=== PATIENT | male | born 1960 | race Two or more races ===

== ENCOUNTER 2019-12-18 15:28 | Inpatient (IN) | payer OTHER ==
[~2019-12-18] VITALS: Ht 167.6 cm; Wt 98.5 kg
[~2019-12-18 15:28] MED LIST: CODE BLUE RESPONSE XX ONE; ETOMIDATE 20 MG/10 ML IV ONE; SUCCINYLCHOLINE 20 MG/ML, 10ML IVPush ONE
--- NOTE | 2019-12-18 15:28 | NUR ---
[facility]IL[facility]-Pt found down on job site in the dirt. AED applied and shocked pt once, on EMS arrival pt in v.fib. Pt shocked again and achieved ROSC with v.tach and pulses. Pt arrived to ED, Dr. Wallace at bedside. Pt with sinus tach on monitor with STEMI on EKG. Pt pale, non responsive, LMA in place on arrival placed by EMS.
[2019-12-18] MEDS ORDERED: ASPIRIN 600 MG SUPP PR STA (15:30)
--- NOTE | 2019-12-18 15:30 | NUR ---
[employer] called on [facility] pre-alert at 1521 Code Cardiac called at 1528 and microbiology lab manager team called in by "code phone/strap machine operator automatic" Cardiology paged at 1529 All research lab assistant members in route per "code phone/strap machine operator automatic" at 1530.
--- NOTE | 2019-12-18 15:36 | NUR ---
Dr. Trujillo in ED seeing patient and Dr. Dorsey aware and coming in
[2019-12-18 15:42] LABS: MEAN CORPUSCULAR HEMOGLOBIN 29.9 pg (27.5-34.5); MEAN CORPUSCULAR HGB CONC 32.2 g/dL (33.2-36.2); MEAN CORPUSCULAR VOLUME 92.8 fL (81-97); MEAN PLATELET VOLUME 8.1 fL (7.4-10.4); PLATELET COUNT 254 x10^3/uL (130-400); RED BLOOD COUNT 4.89 x10^6/uL (4.38-5.82); RED CELL DISTRIBUTION WIDTH 13.3 % (9.4-14.8)
[2019-12-18 15:55] LABS: TROPONIN I 0.457 ng/mL (0.000-0.045)
--- NOTE | 2019-12-18 15:55 | NUR ---
Dr. Dorsey at bedside to evaluate pt.
[2019-12-18 15:56] LABS: INTERNATIONAL NORMALIZED RATIO 1.01 (0.93-1.1); PROTHROMBIN TIME 10.7 Seconds (9.6-11.5)
[2019-12-18] MEDS ORDERED: TICAGRELOR 90 MG TABLET ONE (15:59)
[2019-12-18] MEDS ORDERED: HEPARIN 1,000 UNITS/ML, 10ML ONE (15:59)
[2019-12-18] MEDS ORDERED: MIDAZOLAM 1 MG/ML, 5ML ONE (15:59)
[2019-12-18] MEDS ORDERED: FENTANYL PF 100 MCG/2ML ONE (15:59)
[2019-12-18] MEDS ORDERED: LIDOCAINE 2%, 20ML ONE (15:59)
[2019-12-18] MEDS ORDERED: BIVALIRUDIN 250 MG ONE ×2 (15:59→17:22)
[2019-12-18] MEDS ORDERED: VERAPAMIL 2.5 MG/ML, 2ML ONE (15:59)
[2019-12-18] MEDS ORDERED: PLEASE ENTER ALLERGIES MC SCH (16:00)
[2019-12-18] MEDS ORDERED: SODIUM CHLORIDE 0.9% 1,000 ML IV ONE (16:00)
[2019-12-18] MEDS ORDERED: PLEASE ENTER HEIGHT AND WEIGHT MC SCH (16:00)
[2019-12-18] MEDS ORDERED: SUCCINYLCHOLINE 20 MG/ML, 10ML IVPush ONE (16:00)
[2019-12-18] MEDS ORDERED: ETOMIDATE 20 MG/10 ML IVPush ONE (16:00)
--- NOTE | 2019-12-18 16:13 | NUR ---
Pt to lab support tech.
[2019-12-18 16:15] LABS: MD YES
[2019-12-18] MEDS ORDERED: PROPOFOL 100 ML IV ONE (16:20)
[2019-12-18] MEDS ORDERED: NOREPINEPHRINE 8 MG in SODIUM CHLORIDE 0.9% 242 ML IV PRN (16:24)
[2019-12-18] MEDS ORDERED: TIROFIBAN-0.9% SODIUM CHLORIDE 100 ML IV ONE (16:28)
[2019-12-18] MEDS ORDERED: PHARMACY MAY ADJ FOR RENAL FX MC SCH (16:30)
[2019-12-18] MEDS ORDERED: LIDOCAINE-MPF 1%, 2ML ENDO PRN (16:30)
[2019-12-18] MEDS ORDERED: SENNA/DOCUSATE TABLET NG PRN (16:30)
[2019-12-18] MEDS ORDERED: SENNA 176 MG/5 ML ORAL SOL NG PRN (16:30)
[2019-12-18] MEDS ORDERED: GLUCAGON 1 MG IM PRN (16:30)
[2019-12-18] MEDS ORDERED: LACTULOSE 20 GM/30 ML UDC NG PRN (16:30)
[2019-12-18] MEDS ORDERED: BISACODYL 10 MG SUPP PR PRN (16:30)
[2019-12-18] MEDS ORDERED: DEXTROSE 50%, 50ML SYRINGE IVPush PRN (16:30)
[2019-12-18 16:31] LABS: BAND#(MANUAL) 0.22 x10^3/uL; BANDS%(MANUAL) 1 % (0-7); EOS#(MANUAL) 0.22 x10^3/uL (0.0-0.4); EOS% (MANUAL) 1 % (1-7); LYMPH#(MANUAL) 4.82 x10^3/uL (1-3.4); LYMPHS% (MANUAL) 22 % (22-44); MONOS#(MANUAL) 1.97 x10^3/uL (0.3-2.7); MONOS% (MANUAL) 9 % (2-9); REACTIVE LYMPHS # (MANUAL) 0.44 x10^3/uL (0-0); REACTIVE LYMPHS % (MANUAL) 2 % (0-0); SEG#(MANUAL) 14.24 x10^3/uL (1.8-6.8); SEGS% (MANUAL) 65 % (42-75)
[2019-12-18] MEDS ORDERED: TIROFIBAN HCL MONOHYDRATE 15 ML ONE (16:32)
[2019-12-18 16:33] LABS: <PLATELET ESTIMATE> ADEQUATE; <RBC MORPHOLOGY> NORMAL
[2019-12-18 16:34] LABS: <PLT MORPHOLOGY> NORMAL PLT MORPH
--- NOTE | 2019-12-18 16:40 | NUR ---
THIS TECH DID EKG AND ASSISTED WITH PREP AND TRANSPORT TO SALES OPERATIONS DIRECTOR
[2019-12-18] MEDS ORDERED: BIVALIRUDIN 250 MG in SODIUM CHLORIDE 0.9% 50 ML IV SCH (17:25)
[2019-12-18] MEDS ORDERED: TIROFIBAN HCL MONOHYDRATE 15 ML IV ONE (17:25)
[2019-12-18] MEDS ORDERED: HEPARIN PROTOCOL IIB/IIIA POST-LYTIC MC PRN (18:00)
[2019-12-18 18:08] LABS: MICROSCOPIC INDICATED
[2019-12-18] MEDS ORDERED: HEPARIN 5,000 UNITS/ML, 1ML IV PRN (18:30)
[2019-12-18] MEDS ORDERED: HEPARIN 5,000 UNITS/ML, 1ML IV ONE (18:30)
[2019-12-18] MEDS ORDERED: HEPARIN 25,000 UNITS/250ML PMX 250 ML IV PRN (18:30)
[2019-12-18] MEDS: PHENYLEPHRINE 50 MG in SODIUM CHLORIDE 0.9% 245 ML IV PRN (19:00)
[2019-12-18] MEDS ORDERED: PHENYLEPHRINE 10 MG/ML ONE (19:04)
[2019-12-18 19:05] LABS: TRIGLYCERIDES 139 mg/dL (50-200)
[2019-12-18 19:09] LABS: FREE T4 (FREE THYROXINE) 0.98 ng/dL (0.76-1.46)
[2019-12-18] MEDS ORDERED: ADENOSINE 6 MG/2 ML ONE (19:40)
[2019-12-18 19:52] LABS: AMPHETAMINE SCREEN, URINE Negative (Negative); BARBITURATE SCREEN, URINE Negative (Negative); BENZODIAZEPINE SCREEN, URINE Positive (Negative); CANNABINOID SCREEN, URINE Negative (Negative); COCAINE SCREEN, URINE Negative (Negative); METHADONE SCREEN, URINE Negative (Negative); OPIATE SCREEN, URINE Negative (Negative)
[2019-12-18] MEDS: PROPOFOL 100 ML IV PRN ×2 (19:55→23:57)
[2019-12-18] MEDS: SODIUM CHLORIDE 0.9% 1,000 ML IV SCH ×2 (19:59→21:20)
[2019-12-18] MEDS: TIROFIBAN-0.9% SODIUM CHLORIDE 100 ML IV PRN (20:34)
[2019-12-18] MEDS: FAMOTIDINE 20 MG/2 ML IV SCH (22:17)
[2019-12-18] MEDS: TICAGRELOR 90 MG TABLET PO SCH (22:17)
[2019-12-18] MEDS: ATORVASTATIN 80 MG TABLET PO SCH (22:18)
[2019-12-18] MEDS: SODIUM CHLORIDE FLUSH 10ML SYR IVF SCH (22:24)
[2019-12-19] MEDS: TIROFIBAN-0.9% SODIUM CHLORIDE 100 ML IV PRN (02:15)
[2019-12-19 04:00] VITALS: BP 107/45
[2019-12-19 04:11] LABS: BASOPHILS # (AUTO) 0.03 x10^3/uL (0-0.1); BASOPHILS % (AUTO) 0 % (0-1); EOSINOPHILS % (AUTO) 0 % (1-7); LYMPHOCYTES # (AUTO) 1.05 x10^3/uL (1-3.4); LYMPHOCYTES % (AUTO) 7 % (22-44); MD NO; MEAN CORPUSCULAR HGB CONC 33.2 g/dL (33.2-36.2); MEAN CORPUSCULAR VOLUME 90.2 fL (81-97); MEAN PLATELET VOLUME 8.3 fL (7.4-10.4); MONOCYTES % (AUTO) 9 % (2-9); NEUTROPHILS # (AUTO) 12.51 x10^3/uL (1.8-6.8); NEUTROPHILS % (AUTO) 84 % (42-75); PLATELET COUNT 255 x10^3/uL (130-400); RED CELL DISTRIBUTION WIDTH 13.6 % (9.4-14.8)
[2019-12-19] MEDS: PROPOFOL 100 ML IV PRN (04:22)
[2019-12-19 04:23] LABS: ANION GAP 8 mmol/L (5-15); CALCIUM 7.8 mg/dL (8.5-10.1); CHLORIDE 114 mmol/L (98-107)
[2019-12-19 04:25] LABS: CREATININE 1.05 mg/dL (0.7-1.3)
[2019-12-19] MEDS: PHENYLEPHRINE 50 MG in SODIUM CHLORIDE 0.9% 245 ML IV PRN (06:29)
[2019-12-19] MEDS ORDERED: ASPIRIN 81 MG TABLET EC PO SCH (09:00)
[2019-12-19] MEDS: SODIUM CHLORIDE 0.9% 1,000 ML IV SCH (09:06)
[2019-12-19] MEDS: TICAGRELOR 90 MG TABLET PO SCH ×2 (09:06→20:07)
[2019-12-19] MEDS: FAMOTIDINE 20 MG/2 ML IV SCH ×2 (09:06→20:07)
[2019-12-19] MEDS: ASPIRIN 81 MG TABLET CHEW NG SCH (09:06)
[2019-12-19] MEDS: AMPICILLIN/SULBACTAM 3 GM in SODIUM CHLORIDE 0.9% 100 ML IV SCH ×3 (09:06→20:05)
[2019-12-19] MEDS: SODIUM CHLORIDE FLUSH 10ML SYR IVF SCH ×2 (09:07→20:07)
[2019-12-19] MEDS: FENTANYL PF 100 MCG/2ML IVPush PRN ×6 (10:00→23:18)
[2019-12-19] MEDS: ACETAMINOPHEN 650 MG/20.3 ML UDC PO PRN (10:46)
[2019-12-19] MEDS: ENOXAPARIN 40 MG/0.4 ML SQ SCH (10:46)
[2019-12-19] MEDS: DEXMEDETOMIDINE 400 MCG in SODIUM CHLORIDE 0.9% 96 ML IV PRN ×4 (12:47→23:27)
[2019-12-19] MEDS: ATORVASTATIN 80 MG TABLET PO SCH (20:06)
[2019-12-20] MEDS: DEXMEDETOMIDINE 400 MCG in SODIUM CHLORIDE 0.9% 96 ML IV PRN ×3 (02:22→09:29)
[2019-12-20] MEDS: AMPICILLIN/SULBACTAM 3 GM in SODIUM CHLORIDE 0.9% 100 ML IV SCH ×4 (03:58→20:25)
[2019-12-20 04:00] VITALS: BP 130/73
[2019-12-20 04:52] LABS: ANION GAP 4 mmol/L (5-15); CALCIUM 8.3 mg/dL (8.5-10.1); CHLORIDE 117 mmol/L (98-107); CREATININE 0.92 mg/dL (0.7-1.3)
[2019-12-20 05:05] LABS: BASOPHILS # (AUTO) 0.03 x10^3/uL (0-0.1); BASOPHILS % (AUTO) 0 % (0-1); EOSINOPHILS # (AUTO) 0.02 x10^3/uL (0-0.4); EOSINOPHILS % (AUTO) 0 % (1-7); LYMPHOCYTES # (AUTO) 1.58 x10^3/uL (1-3.4); LYMPHOCYTES % (AUTO) 11 % (22-44); MD NO; MEAN CORPUSCULAR HEMOGLOBIN 30.3 pg (27.5-34.5); MEAN CORPUSCULAR HGB CONC 33.3 g/dL (33.2-36.2); MEAN CORPUSCULAR VOLUME 91.2 fL (81-97); MEAN PLATELET VOLUME 8.7 fL (7.4-10.4); MONOCYTES # (AUTO) 1.43 x10^3/uL (0.2-0.8); MONOCYTES % (AUTO) 10 % (2-9); NEUTROPHILS % (AUTO) 80 % (42-75); PLATELET COUNT 186 x10^3/uL (130-400); RED BLOOD COUNT 4.08 x10^6/uL (4.38-5.82); RED CELL DISTRIBUTION WIDTH 13.4 % (9.4-14.8)
[2019-12-20] MEDS: SODIUM CHLORIDE FLUSH 10ML SYR IVF SCH ×2 (08:45→20:25)
[2019-12-20] MEDS: FAMOTIDINE 20 MG/2 ML IV SCH ×2 (08:45→20:23)
[2019-12-20] MEDS: ASPIRIN 81 MG TABLET CHEW NG SCH (08:45)
[2019-12-20] MEDS: TICAGRELOR 90 MG TABLET PO SCH ×2 (08:45→20:25)
[2019-12-20] MEDS: ENOXAPARIN 40 MG/0.4 ML SQ SCH (08:45)
[2019-12-20] MEDS: LISINOPRIL 5 MG TABLET PO SCH ×2 (09:42→20:27)
[2019-12-20] MEDS: CARVEDILOL 3.125 MG TABLET PO SCH ×2 (09:42→17:15)
[2019-12-20] MEDS ORDERED: SODIUM CHLORIDE 0.9%, 500ML IVBOLUS ONE (10:00)
[2019-12-20] MEDS: OXYcodone IR 5MG TABLET PO PRN ×2 (16:02→23:47)
[2019-12-20] MEDS ORDERED: MORPHINE SULFATE 4 MG/ML, 1ML ONE (17:13)
[2019-12-20] MEDS ORDERED: MORPHINE SULFATE 4 MG/ML, 1ML IVPush PRN (17:30)
[2019-12-20] MEDS: ATORVASTATIN 80 MG TABLET PO SCH (20:25)
[2019-12-21] MEDS: AMPICILLIN/SULBACTAM 3 GM in SODIUM CHLORIDE 0.9% 100 ML IV SCH ×4 (02:49→21:11)
[2019-12-21 04:39] VITALS: BP 145/77
[2019-12-21 04:57] LABS: BASOPHILS # (AUTO) 0.06 x10^3/uL (0-0.1); BASOPHILS % (AUTO) 0 % (0-1); EOSINOPHILS # (AUTO) 0.06 x10^3/uL (0-0.4); EOSINOPHILS % (AUTO) 0 % (1-7); LYMPHOCYTES # (AUTO) 2.12 x10^3/uL (1-3.4); LYMPHOCYTES % (AUTO) 13 % (22-44); MD NO; MEAN CORPUSCULAR HEMOGLOBIN 30.2 pg (27.5-34.5); MEAN CORPUSCULAR HGB CONC 33.4 g/dL (33.2-36.2); MEAN CORPUSCULAR VOLUME 90.7 fL (81-97); MEAN PLATELET VOLUME 8.4 fL (7.4-10.4); MONOCYTES # (AUTO) 1.26 x10^3/uL (0.2-0.8); MONOCYTES % (AUTO) 8 % (2-9); NEUTROPHILS # (AUTO) 12.46 x10^3/uL (1.8-6.8); NEUTROPHILS % (AUTO) 78 % (42-75); PLATELET COUNT 203 x10^3/uL (130-400); RED BLOOD COUNT 4.05 x10^6/uL (4.38-5.82); RED CELL DISTRIBUTION WIDTH 13.1 % (9.4-14.8)
[2019-12-21 05:00] LABS: ANION GAP 7 mmol/L (5-15); CALCIUM 8.5 mg/dL (8.5-10.1); CHLORIDE 113 mmol/L (98-107); CREATININE 0.86 mg/dL (0.7-1.3)
[2019-12-21] MEDS: OXYcodone IR 5MG TABLET PO PRN ×3 (05:08→18:18)
[2019-12-21] MEDS: CARVEDILOL 3.125 MG TABLET PO SCH (05:08)
[2019-12-21] MEDS: LISINOPRIL 5 MG TABLET PO SCH (09:10)
[2019-12-21] MEDS: TICAGRELOR 90 MG TABLET PO SCH ×2 (09:10→21:12)
[2019-12-21] MEDS: FAMOTIDINE 20 MG/2 ML IV SCH (09:10)
[2019-12-21] MEDS: ASPIRIN 81 MG TABLET CHEW NG SCH (09:10)
[2019-12-21] MEDS: SODIUM CHLORIDE FLUSH 10ML SYR IVF SCH ×2 (09:10→21:00)
[2019-12-21] MEDS: ENOXAPARIN 40 MG/0.4 ML SQ SCH (09:22)
[2019-12-21] MEDS ORDERED: POTASSIUM CHLORIDE 20 MEQ TAB.ER.PRT PO ONE (12:00)
[2019-12-21 12:23] VITALS: BP 156/54
[2019-12-21] MEDS: LACTOBACILLUS CHEW TABLET PO SCH ×2 (16:37→21:12)
[2019-12-21] MEDS ORDERED: METF500T17 PO (17:41)
[2019-12-21] MEDS ORDERED: ASPI81TA45 PO (17:41)
[2019-12-21] MEDS ORDERED: ATOR40TA78 PO (17:41)
[2019-12-21] MEDS ORDERED: GLYB5TAB3 PO (17:41)
[2019-12-21] MEDS ORDERED: LISI5TAB7 PO (17:41)
[2019-12-21] MEDS: CARVEDILOL 6.25 MG TABLET PO SCH (18:15)
[2019-12-21] MEDS ORDERED: LISINOPRIL 10 MG TABLET PO SCH (21:00)
[2019-12-21] MEDS: ATORVASTATIN 80 MG TABLET PO SCH (21:12)
[2019-12-21 21:24] VITALS: BP 154/80
[2019-12-22 00:26] VITALS: BP 154/77
[2019-12-22] MEDS: AMPICILLIN/SULBACTAM 3 GM in SODIUM CHLORIDE 0.9% 100 ML IV SCH ×4 (03:12→22:12)
[2019-12-22] MEDS: CARVEDILOL 6.25 MG TABLET PO SCH (05:31)
[2019-12-22] MEDS: OXYcodone IR 5MG TABLET PO PRN (05:37)
[2019-12-22 05:54] LABS: BASOPHILS # (AUTO) 0.04 x10^3/uL (0-0.1); BASOPHILS % (AUTO) 0 % (0-1); EOSINOPHILS # (AUTO) 0.14 x10^3/uL (0-0.4); EOSINOPHILS % (AUTO) 1 % (1-7); LYMPHOCYTES % (AUTO) 12 % (22-44); MD NO; MEAN CORPUSCULAR HEMOGLOBIN 30.1 pg (27.5-34.5); MEAN CORPUSCULAR HGB CONC 33.2 g/dL (33.2-36.2); MEAN CORPUSCULAR VOLUME 90.5 fL (81-97); MEAN PLATELET VOLUME 7.9 fL (7.4-10.4); MONOCYTES # (AUTO) 1.28 x10^3/uL (0.2-0.8); MONOCYTES % (AUTO) 10 % (2-9); NEUTROPHILS # (AUTO) 9.58 x10^3/uL (1.8-6.8); NEUTROPHILS % (AUTO) 76 % (42-75); PLATELET COUNT 220 x10^3/uL (130-400); RED BLOOD COUNT 4.06 x10^6/uL (4.38-5.82); RED CELL DISTRIBUTION WIDTH 13.3 % (9.4-14.8)
[2019-12-22] MEDS ORDERED: ENALAPRILAT 1.25 MG/ML, 2ML IV PRN (06:00)
[2019-12-22 06:09] LABS: ANION GAP 8 mmol/L (5-15); CALCIUM 8.4 mg/dL (8.5-10.1); CHLORIDE 109 mmol/L (98-107); CREATININE 0.73 mg/dL (0.7-1.3)
[2019-12-22 06:12] VITALS: BP 147/76
[2019-12-22 07:23] VITALS: BP 162/83
[2019-12-22] MEDS: LACTOBACILLUS CHEW TABLET PO SCH ×3 (09:31→22:12)
[2019-12-22] MEDS: TICAGRELOR 90 MG TABLET PO SCH ×2 (09:31→22:13)
[2019-12-22] MEDS: ASPIRIN 81 MG TABLET CHEW NG SCH (09:31)
[2019-12-22] MEDS: ENOXAPARIN 40 MG/0.4 ML SQ SCH (09:31)
[2019-12-22] MEDS: SODIUM CHLORIDE FLUSH 10ML SYR IVF SCH ×2 (09:33→22:19)
[2019-12-22 13:02] VITALS: BP 160/80
[2019-12-22] MEDS ORDERED: POTASSIUM CHLORIDE 20 MEQ TAB.ER.PRT PO ONE (15:00)
[2019-12-22 17:10] VITALS: BP 139/72
[2019-12-22] MEDS: CARVEDILOL 12.5 MG TABLET PO SCH (17:13)
[2019-12-22 19:59] VITALS: BP 136/74
[2019-12-22] MEDS ORDERED: LORazepam 2 MG/ML, 1ML IVPush ONE (22:00)
[2019-12-22] MEDS: ATORVASTATIN 80 MG TABLET PO SCH (22:13)
[2019-12-22] MEDS: LISINOPRIL 10 MG TABLET PO SCH (22:13)
[2019-12-23 01:58] VITALS: BP 148/71
[2019-12-23] MEDS: OXYcodone IR 5MG TABLET PO PRN ×3 (03:54→18:57)
[2019-12-23] MEDS: AMPICILLIN/SULBACTAM 3 GM in SODIUM CHLORIDE 0.9% 100 ML IV SCH ×3 (03:54→20:28)
[2019-12-23 06:28] LABS: BASOPHILS # (AUTO) 0.03 x10^3/uL (0-0.1); BASOPHILS % (AUTO) 0 % (0-1); EOSINOPHILS # (AUTO) 0.09 x10^3/uL (0-0.4); EOSINOPHILS % (AUTO) 1 % (1-7); LYMPHOCYTES # (AUTO) 1.09 x10^3/uL (1-3.4); LYMPHOCYTES % (AUTO) 10 % (22-44); MD NO; MEAN CORPUSCULAR HEMOGLOBIN 30.2 pg (27.5-34.5); MEAN CORPUSCULAR HGB CONC 33.6 g/dL (33.2-36.2); MEAN PLATELET VOLUME 8.3 fL (7.4-10.4); MONOCYTES # (AUTO) 1.31 x10^3/uL (0.2-0.8); MONOCYTES % (AUTO) 12 % (2-9); NEUTROPHILS # (AUTO) 8.31 x10^3/uL (1.8-6.8); NEUTROPHILS % (AUTO) 77 % (42-75); PLATELET COUNT 222 x10^3/uL (130-400); RED BLOOD COUNT 3.82 x10^6/uL (4.38-5.82); RED CELL DISTRIBUTION WIDTH 12.7 % (9.4-14.8)
[2019-12-23 06:36] LABS: CHLORIDE 108 mmol/L (98-107)
[2019-12-23 06:51] LABS: ALANINE AMINOTRANSFERASE 108 U/L (12-78); ALBUMIN 2.9 g/dL (3.4-5.0); ALKALINE PHOSPHATASE 37 U/L (45-117); ANION GAP 6 mmol/L (5-15); BILIRUBIN,TOTAL 1.3 mg/dL (0.2-1.0); CALCIUM 7.9 mg/dL (8.5-10.1); CREATININE 0.81 mg/dL (0.7-1.3); TOTAL PROTEIN 6.5 g/dL (6.4-8.2)
[2019-12-23 07:31] VITALS: BP 131/69
[2019-12-23] MEDS: TICAGRELOR 90 MG TABLET PO SCH ×2 (08:03→20:31)
[2019-12-23] MEDS: LACTOBACILLUS CHEW TABLET PO SCH ×3 (08:03→20:31)
[2019-12-23] MEDS: CARVEDILOL 12.5 MG TABLET PO SCH ×2 (08:03→17:32)
[2019-12-23] MEDS: LISINOPRIL 10 MG TABLET PO SCH ×2 (08:04→20:31)
[2019-12-23] MEDS: ASPIRIN 81 MG TABLET CHEW NG SCH (08:04)
[2019-12-23] MEDS: SODIUM CHLORIDE FLUSH 10ML SYR IVF SCH ×2 (08:05→20:29)
[2019-12-23] MEDS: ACETAMINOPHEN 650 MG/20.3 ML UDC PO PRN ×2 (08:05→17:35)
[2019-12-23] MEDS: ENOXAPARIN 40 MG/0.4 ML SQ SCH (08:09)
[2019-12-23 13:37] VITALS: BP 131/75
[2019-12-23 17:31] VITALS: BP 154/78
[2019-12-23 19:17] VITALS: BP 102/58
[2019-12-23] MEDS: ATORVASTATIN 80 MG TABLET PO SCH (20:31)
[2019-12-24 01:11] VITALS: BP 144/68
[2019-12-24] MEDS: AMPICILLIN/SULBACTAM 3 GM in SODIUM CHLORIDE 0.9% 100 ML IV SCH ×2 (02:36→08:12)
[2019-12-24 06:14] LABS: MICROSCOPIC NOT IND
[2019-12-24 07:35] VITALS: BP 133/66
[2019-12-24] MEDS: ACETAMINOPHEN 650 MG/20.3 ML UDC PO PRN ×2 (08:11→13:23)
[2019-12-24] MEDS: ASPIRIN 81 MG TABLET CHEW NG SCH (08:11)
[2019-12-24] MEDS: LACTOBACILLUS CHEW TABLET PO SCH ×3 (08:11→22:06)
[2019-12-24] MEDS: CARVEDILOL 12.5 MG TABLET PO SCH ×2 (08:12→15:52)
[2019-12-24] MEDS: TICAGRELOR 90 MG TABLET PO SCH ×2 (08:12→22:05)
[2019-12-24] MEDS: LISINOPRIL 10 MG TABLET PO SCH ×2 (08:12→22:11)
[2019-12-24] MEDS: SODIUM CHLORIDE FLUSH 10ML SYR IVF SCH ×2 (08:13→22:11)
[2019-12-24 10:04] LABS: MEAN CORPUSCULAR HEMOGLOBIN 29.7 pg (27.5-34.5); MEAN CORPUSCULAR HGB CONC 32.6 g/dL (33.2-36.2); MEAN CORPUSCULAR VOLUME 90.8 fL (81-97); MEAN PLATELET VOLUME 7.9 fL (7.4-10.4); PLATELET COUNT 248 x10^3/uL (130-400); RED BLOOD COUNT 3.86 x10^6/uL (4.38-5.82); RED CELL DISTRIBUTION WIDTH 13.3 % (9.4-14.8)
[2019-12-24 10:29] LABS: BASOPHILS # (AUTO) 0.06 x10^3/uL (0-0.1); BASOPHILS % (AUTO) 1 % (0-1); EOSINOPHILS # (AUTO) 0.16 x10^3/uL (0-0.4); EOSINOPHILS % (AUTO) 1 % (1-7); LYMPHOCYTES # (AUTO) 1.37 x10^3/uL (1-3.4); LYMPHOCYTES % (AUTO) 12 % (22-44); MD SCAN; MONOCYTES # (AUTO) 1.29 x10^3/uL (0.2-0.8); MONOCYTES % (AUTO) 11 % (2-9); NEUTROPHILS # (AUTO) 9.08 x10^3/uL (1.8-6.8); NEUTROPHILS % (AUTO) 76 % (42-75)
[2019-12-24] MEDS: AMOXICILLIN/CLAV 875-125MG TABLET PO SCH ×2 (13:22→22:05)
[2019-12-24] MEDS: OXYcodone IR 5MG TABLET PO PRN (15:53)
[2019-12-24 20:20] VITALS: BP 144/89
[2019-12-24] MEDS: ATORVASTATIN 80 MG TABLET PO SCH (22:05)
[2019-12-25 00:24] VITALS: BP 144/72
[2019-12-25 03:43] LABS: ALANINE AMINOTRANSFERASE 74 U/L (12-78); ALBUMIN 2.3 g/dL (3.4-5.0); ANION GAP 8 mmol/L (5-15); CALCIUM 8.4 mg/dL (8.5-10.1); CHLORIDE 108 mmol/L (98-107); CREATININE 0.65 mg/dL (0.7-1.3)
[2019-12-25 03:46] LABS: ALKALINE PHOSPHATASE 35 U/L (45-117); TOTAL PROTEIN 6.2 g/dL (6.4-8.2)
[2019-12-25 03:47] LABS: BASOPHILS # (AUTO) 0.02 x10^3/uL (0-0.1); BASOPHILS % (AUTO) 0 % (0-1); EOSINOPHILS # (AUTO) 0.31 x10^3/uL (0-0.4); EOSINOPHILS % (AUTO) 3 % (1-7); LYMPHOCYTES # (AUTO) 1.78 x10^3/uL (1-3.4); LYMPHOCYTES % (AUTO) 15 % (22-44); MD NO; MEAN CORPUSCULAR HEMOGLOBIN 29.7 pg (27.5-34.5); MEAN CORPUSCULAR HGB CONC 32.5 g/dL (33.2-36.2); MEAN CORPUSCULAR VOLUME 91.4 fL (81-97); MEAN PLATELET VOLUME 8.1 fL (7.4-10.4); MONOCYTES # (AUTO) 1.33 x10^3/uL (0.2-0.8); MONOCYTES % (AUTO) 11 % (2-9); NEUTROPHILS # (AUTO) 8.59 x10^3/uL (1.8-6.8); NEUTROPHILS % (AUTO) 71 % (42-75); PLATELET COUNT 265 x10^3/uL (130-400); RED BLOOD COUNT 3.62 x10^6/uL (4.38-5.82); RED CELL DISTRIBUTION WIDTH 13.1 % (9.4-14.8)
[2019-12-25 07:08] VITALS: BP 145/69
[2019-12-25] MEDS: ASPIRIN 81 MG TABLET CHEW NG SCH (08:13)
[2019-12-25] MEDS: CARVEDILOL 12.5 MG TABLET PO SCH ×2 (08:13→16:44)
[2019-12-25] MEDS: LISINOPRIL 10 MG TABLET PO SCH ×2 (08:13→21:10)
[2019-12-25] MEDS: AMOXICILLIN/CLAV 875-125MG TABLET PO SCH ×2 (08:13→21:10)
[2019-12-25] MEDS: LACTOBACILLUS CHEW TABLET PO SCH ×3 (08:13→21:11)
[2019-12-25] MEDS: OXYcodone IR 5MG TABLET PO PRN (08:15)
[2019-12-25] MEDS: TICAGRELOR 90 MG TABLET PO SCH ×2 (08:17→21:11)
[2019-12-25] MEDS: SODIUM CHLORIDE FLUSH 10ML SYR IVF SCH ×2 (08:18→21:11)
[2019-12-25] MEDS: SPIRONOLACTONE 25 MG TABLET PO SCH (09:12)
[2019-12-25 12:30] VITALS: BP 99/59
[2019-12-25] MEDS: POTASSIUM CHLORIDE 20 MEQ TAB.ER.PRT PO SCH (16:43)
[2019-12-25 16:44] VITALS: BP 134/70
[2019-12-25 19:08] VITALS: BP 122/61
[2019-12-25] MEDS: ATORVASTATIN 80 MG TABLET PO SCH (21:11)
[2019-12-26 00:36] VITALS: BP 117/59
[2019-12-26 08:30] VITALS: BP 107/57
[2019-12-26] MEDS: LISINOPRIL 10 MG TABLET PO SCH ×2 (08:40→19:24)
[2019-12-26] MEDS: AMOXICILLIN/CLAV 875-125MG TABLET PO SCH ×2 (08:40→19:23)
[2019-12-26] MEDS: POTASSIUM CHLORIDE 20 MEQ TAB.ER.PRT PO SCH ×2 (08:40→16:25)
[2019-12-26] MEDS: LACTOBACILLUS CHEW TABLET PO SCH ×3 (08:40→19:23)
[2019-12-26] MEDS: SPIRONOLACTONE 25 MG TABLET PO SCH (08:41)
[2019-12-26] MEDS: TICAGRELOR 90 MG TABLET PO SCH ×2 (08:41→19:23)
[2019-12-26] MEDS: ASPIRIN 81 MG TABLET CHEW NG SCH (08:41)
[2019-12-26] MEDS: CARVEDILOL 12.5 MG TABLET PO SCH ×2 (08:41→16:25)
[2019-12-26] MEDS: SODIUM CHLORIDE FLUSH 10ML SYR IVF SCH ×2 (08:46→19:25)
[2019-12-26] MEDS: ENOXAPARIN 40 MG/0.4 ML SQ SCH (10:12)
[2019-12-26 13:32] VITALS: BP 106/69
[2019-12-26 16:23] VITALS: BP 105/52
[2019-12-26 18:44] VITALS: BP 103/63
[2019-12-26] MEDS: ATORVASTATIN 80 MG TABLET PO SCH (19:23)
[2019-12-27 02:00] VITALS: BP 130/66
[2019-12-27 07:06] VITALS: BP 125/70
[2019-12-27 07:50] VITALS: BP 126/75
[2019-12-27] MEDS: POTASSIUM CHLORIDE 20 MEQ TAB.ER.PRT PO SCH (08:53)
[2019-12-27] MEDS: ENOXAPARIN 40 MG/0.4 ML SQ SCH (08:53)
[2019-12-27] MEDS: TICAGRELOR 90 MG TABLET PO SCH (08:53)
[2019-12-27] MEDS: SODIUM CHLORIDE FLUSH 10ML SYR IVF SCH (08:53)
[2019-12-27] MEDS: LACTOBACILLUS CHEW TABLET PO SCH ×2 (08:53→15:30)
[2019-12-27] MEDS: LISINOPRIL 10 MG TABLET PO SCH (08:54)
[2019-12-27] MEDS: ASPIRIN 81 MG TABLET CHEW NG SCH (08:54)
[2019-12-27] MEDS: CARVEDILOL 12.5 MG TABLET PO SCH (08:54)
[2019-12-27] MEDS: AMOXICILLIN/CLAV 875-125MG TABLET PO SCH (08:54)
[2019-12-27] MEDS: SPIRONOLACTONE 25 MG TABLET PO SCH (08:55)
[2019-12-27] MEDS ORDERED: SPIRONOLACTONE 25 MG TABLET PO SCH (10:00)
[2019-12-27 12:44] VITALS: BP 90/54
--- NOTE | 2019-12-27 13:44 | NUR ---
OT treatment completed 12/26. Patient demonstrated improved functioning; he is cleared by OT to discharge home when medically stable, with family assist as needed. Addendum: 12/27/19 at 1359 by Otto Estes OT Amended: Links added.
[2019-12-27] MEDS ORDERED: ATOR-2 PO (14:30)
[2019-12-27] MEDS ORDERED: LISI-167 PO (14:30)
[2019-12-27] MEDS ORDERED: AMOX1TAB12 PO (14:30)
[2019-12-27] MEDS ORDERED: ACET650S21 PO (14:30)
[2019-12-27] MEDS ORDERED: POTA20TA6 PO (14:30)
[2019-12-27] MEDS ORDERED: TICA90TA PO (14:30)
[2019-12-27] MEDS ORDERED: CARV12.52 PO (14:30)
[2019-12-27] MEDS ORDERED: SPIR25TA PO (14:30)
[2019-12-27 15:11] VITALS: BP 124/74
== END 2019-12-27 16:45 | disposition home or self-care (01) | DRG 853 ==
LOC: EDBD 15:28 → ED 16:36 → EDIP 16:45 → CCU 17:25 → 5SO 12-21 11:40 → 3N 12-24 16:54 → DCLOUNGE 12-27 16:37
PROVIDERS: ADMIT Internal Medicine; ATTEND Internal Medicine
PROC: 0T9B30Z Drainage of Bladder with Drainage Device, Percutaneous Approach (ICD-10-PCS; principal; 2019-12-18)
PROC: 027034Z Dilation of Coronary Artery, One Artery with Drug-eluting Intraluminal Device, Percutaneous Approach (ICD-10-PCS; 2019-12-18)
PROC: 5A1945Z Respiratory Ventilation, 24-96 Consecutive Hours (ICD-10-PCS; 2019-12-18)
PROC: 0BH17EZ Insertion of Endotracheal Airway into Trachea, Via Natural or Artificial Opening (ICD-10-PCS; 2019-12-18)
PROC: 5A2204Z Restoration of Cardiac Rhythm, Single (ICD-10-PCS; 2019-12-18)
PROC: 4A023N8 Measurement of Cardiac Sampling and Pressure, Bilateral, Percutaneous Approach (ICD-10-PCS; 2019-12-18)
PROC: B2111ZZ Fluoroscopy of Multiple Coronary Arteries using Low Osmolar Contrast (ICD-10-PCS; 2019-12-18)
PROC: B2151ZZ Fluoroscopy of Left Heart using Low Osmolar Contrast (ICD-10-PCS; 2019-12-18)
DX: A41.9 Sepsis, unspecified organism (principal); J96.01 Acute respiratory failure with hypoxia; I21.19 ST elevation (STEMI) myocardial infarction involving other coronary artery of inferior wall; J69.0 Pneumonitis due to inhalation of food and vomit; I46.2 Cardiac arrest due to underlying cardiac condition; I49.01 Ventricular fibrillation; N17.0 Acute kidney failure with tubular necrosis; I50.43 Acute on chronic combined systolic (congestive) and diastolic (congestive) heart failure; R65.21 Severe sepsis with septic shock; I47.2 Ventricular tachycardia; N39.0 Urinary tract infection, site not specified; Z99.11 Dependence on respirator [ventilator] status; I11.0 Hypertensive heart disease with heart failure; D63.8 Anemia in other chronic diseases classified elsewhere; E11.65 Type 2 diabetes mellitus with hyperglycemia; D72.829 Elevated white blood cell count, unspecified; I95.9 Hypotension, unspecified; I25.10 Atherosclerotic heart disease of native coronary artery without angina pectoris; E83.42 Hypomagnesemia; I25.5 Ischemic cardiomyopathy; Z87.891 Personal history of nicotine dependence; Z95.5 Presence of coronary angioplasty implant and graft; Z95.810 Presence of automatic (implantable) cardiac defibrillator
CPT/HCPCS: 31500; 36415; 36600; 84145; 93460; 96361; 96374; 99291; J3490; 70450; 71045; 80047; 80048; 80053; 80307; 81001; 81003; 82533; 82803; 83036; 83735; 84134; 84439; 84443; 84478; 84484; 85025; 85520; 85610; 85730; 87040; 87070; 87081; 87086; 87147; 87205; 92950; 93005; 93306; 93880; 94002; 94003; 94150; 99156; 99157; C1769; C1894; G0378; J0153; J0295; J0583; J1644; J1650; J2250; J2704; J3010; C1725; C1874; C1887; J0330; J2060; J2270; J2370; J7030; J7040; J7050; Q9967

== ENCOUNTER → 2020-03-27 | Outpatient (CLI) | payer MEDICAID ==
[~2020-03-27] MED LIST changes: +ACET650S21 PO; +AMOX1TAB12 PO; +ASPI81TA45 PO; +ATOR-2 PO; +ATOR40TA78 PO; +CARV12.52 PO; -CODE BLUE RESPONSE XX ONE; -ETOMIDATE 20 MG/10 ML IV ONE; +GLYB5TAB3 PO; +LISI-167 PO; +LISI5TAB7 PO; +METF500T17 PO; +POTA20TA6 PO; +SPIR25TA PO; -SUCCINYLCHOLINE 20 MG/ML, 10ML IVPush ONE; +TICA90TA PO
== END | disposition home or self-care (01) ==
LOC: CFH 10:54
PROVIDERS: ATTEND Internal Medicine Cardiovascular Disease
DX: Z01.810 Encounter for preprocedural cardiovascular examination (principal); I10 Essential (primary) hypertension; E78.5 Hyperlipidemia, unspecified; E11.9 Type 2 diabetes mellitus without complications; Z87.891 Personal history of nicotine dependence
CPT/HCPCS: 93306

== ENCOUNTER 2020-06-14 10:39 | Emergency (ER) | payer MEDICAID ==
[~2020-06-14] VITALS: Ht 170.2 cm; Wt 93.4 kg
[2020-06-14 10:46] VITALS: BP 148/56
[2020-06-14 11:36] LABS: ALBUMIN 3.6 g/dL (3.4-5.0); ANION GAP 4 mmol/L (5-15); CALCIUM 9.7 mg/dL (8.5-10.1); CHLORIDE 105 mmol/L (98-107)
[2020-06-14 11:37] LABS: CREATININE 0.89 mg/dL (0.7-1.3)
[2020-06-14] MEDS ORDERED: PROPARACAINE OPHTH 0.5%, 15ML ONE (11:38)
== END 2020-06-14 12:45 | disposition home or self-care (01) ==
LOC: ED 11:52
DX: G89.29 Other chronic pain (principal); H57.11 Ocular pain, right eye
CPT/HCPCS: 36415; 80048; 82040; 99283